=== PATIENT | male | born 1990 | race Hispanic/Latino ===

== ENCOUNTER 2017-07-06 19:08 | Emergency (ER) | payer OTHER, SELFPAY ==
[2017-07-06] MEDS ORDERED: Acyclovir 400 mg Tablet PO SCH (20:15)
[2017-07-06] MEDS ORDERED: predniSONE 20 MG TAB ONE (20:53)
== END 2017-07-06 21:02 | disposition home or self-care (01) ==
LOC: ERS 19:08
DX: G51.0 Bell's palsy (principal); Z87.891 Personal history of nicotine dependence
CPT/HCPCS: 99283; J7506

== ENCOUNTER 2023-09-08 10:39 | Outpatient (CLI) | payer OTHER ==
[2023-09-08 12:06] LABS: #Basophils 0.06 10x3/uL (0.0-0.2); #Eosinphils 0.07 10x3/uL (0.0-0.5); #Monocytes 0.86 10x3/uL (0.0-1.1); #Neutrophils 10.01 10x3/uL (1.5-8.4); %Basophils 0.5 % (0.0-2.0); %Eosinophils 0.5 % (0.0-6.0); %Lymphocytes 16.4 % (18.0-47.0); %Monocytes 6.5 % (0.0-10.0); %Neutrophils 75.6 % (40.0-75.0); Hematocrit 41.2 % (38.8-50.0); Hemoglobin 14.3 g/dL (13.5-17.5); Mean Corpuscular HGB CONC 34.7 g/dL (32.0-36.0); Mean Corpuscular Hemoglobin 29.2 pg (27.0-33.0); Mean Corpuscular Volume 84.1 fL (81.2-95.1); Mean Platelet Volume 10.6 fL (7.4-10.4); Platelet Count 240 10x3/uL (150-450); RBC Distribution Width 12.9 % (11.5-14.5); White Blood Cell (WBC) Count 13.2 10x3/uL (3.5-10.5)
[2023-09-08 12:52] LABS: Anion Gap 13 mmol/L (10-20); BUN (Urea Nitrogen) 12 mg/dL (8.9-20.6); Calc. Creatinine Clearance 0 mL/min (70-130); Calcium 9.4 mg/dL (7.8-10.44); Carbon Dioxide 22 mmol/L (22-29); Chloride 107 mmol/L (98-107); Estimated GFR 119; Glucose 103 mg/dL (70-105); Potassium 4.1 mmol/L (3.5-5.1); Sodium 138 mmol/L (136-145)
== END 2023-09-08 10:40 | disposition home or self-care (01) ==
LOC: LABBT 10:39
PROVIDERS: ATTEND Specialist
DX: Z01.818 Encounter for other preprocedural examination (principal); K42.9 Umbilical hernia without obstruction or gangrene
CPT/HCPCS: 80048; 85025; 93005; 93010

== ENCOUNTER 2023-09-11 09:22 | Day surgery (SDC) | payer OTHER ==
[2023-09-08 11:23] VITALS: BMI 37.3
[2023-09-11] MEDS ORDERED: CEFAZOLIN 2 GM VIAL ONE (10:17)
[2023-09-11] MEDS ORDERED: Sodium Chloride 0.9% 100 ML ONE (10:17)
[2023-09-11] MEDS ORDERED: Ketorolac Tromethamine 30 MG (1 mL) VIAL ONE ×2 (10:17→12:07)
[2023-09-11] MEDS ORDERED: Acetaminophen 500 MG TAB ONE (10:17)
[2023-09-11] MEDS ORDERED: EPINEPHrine 1 MG/ML VIAL ONE (11:59)
[2023-09-11] MEDS ORDERED: Bupivacaine 0.25% HCL 30 ML VIAL ONE (11:59)
[2023-09-11] MEDS ORDERED: Dexamethasone 4 mg/ml Vial ONE (12:07)
[2023-09-11] MEDS ORDERED: Lidocaine 2% PF 5 ML VIAL ONE (12:07)
[2023-09-11] MEDS ORDERED: Rocuronium Bromide 10 MG/ML (10ML VIAL) ONE (12:07)
[2023-09-11] MEDS ORDERED: Ondansetron PF 4 MG/2 ML Vial ONE (12:07)
[2023-09-11] MEDS ORDERED: PROPOFOL 20 ML ONE (12:10)
[2023-09-11] MEDS ORDERED: fentaNYL PF 100 MCG/2 ML SYRINGE ONE (12:10)
[2023-09-11] MEDS ORDERED: hydrALAZINE 20 MG/ML VIAL ONE (13:06)
[2023-09-11] MEDS ORDERED: SUGAMMADEX SODIUM 200 MG/2 ML VIAL ONE (13:22)
[2023-09-11] MEDS ORDERED: Dexmedetomidine 200 MCG/2 ML VIAL ONE (13:35)
[2023-09-11] MEDS ORDERED: fentaNYL 50 mcg/mL 1 mL Vial ONE (14:36)
[2023-09-11] MEDS ORDERED: HYDROcodone/Acetaminophen 5/325 mg Tablet ONE (16:09)
== END 2023-09-11 16:36 | disposition home or self-care (01) ==
LOC: SDC 09:22
PROVIDERS: ATTEND Specialist
PROC: 0WUF4JZ Supplement Abdominal Wall with Synthetic Substitute, Percutaneous Endoscopic Approach (ICD-10-PCS; principal; 2023-09-11)
DX: K42.9 Umbilical hernia without obstruction or gangrene (principal); I10 Essential (primary) hypertension; Z90.49 Acquired absence of other specified parts of digestive tract; Z98.890 Other specified postprocedural states; Z79.899 Other long term (current) drug therapy
CPT/HCPCS: A4314; A6258; C1781; J0171; J0360; J0665; J1100; J1885; J2001; J2405; J2704; J3010; J3490